=== PATIENT | male | born 1995 | race Caucasian/White ===

== ENCOUNTER 2023-03-24 17:48 | Emergency (ER) | payer OTHER, SELFPAY ==
--- NOTE | ~2023-03-24 | XR_ITS ---
EXAMINATION: XR shoulder LT min 2V DATE: 03/24/2023 18:11 INDICATION: Left shoulder pain. Fall. TECHNIQUE: 4 views of left shoulder were obtained. COMPARISON: None. FINDINGS: Bone alignment is normal. No fracture. Joint spaces are normal. IMPRESSION: 1. Normal left shoulder. Reviewed, dictated and finalized at location E. POINTER IMPRESSION: 1. Normal left shoulder.
--- NOTE | ~2023-03-24 | XR_ITS ---
EXAMINATION: [id number] DATE: 03/24/2023 19:09 INDICATION: Left neck and shoulder pain. Fall on ice. TECHNIQUE: 3 views of cervical spine were obtained. COMPARISON: None. FINDINGS: There is 5 degrees levocurvature of cervicothoracic spine. Vertebral body heights and inter vertebral disc heights are normal. The facet joints are unremarkable. No central canal stenosis or pr evertebral soft tissue swelling. IMPRESSION: 1. No fracture. Reviewed, dictated and finalized at location E. RIAL CREW SUPERVISOR IMPRESSION: 1. No fracture.
[2023-03-24 17:50] VITALS: BP 136/109; PULSE 93; RESP 16; TEMP 36.4; O2SAT 99
--- NOTE | 2023-03-24 18:02 | ED.FALL ---
HPI - Fall General Chief Complaint: Fall <Don Senior APRN - Last Filed: 03/25/23 07:55> Stated Complaint: fall, left shoulder injury <Don Senior APRN - Last Filed: 03/25/23 07:55> Time Seen by Provider: 03/24/23 18:02 <Don Senior APRN - Last Filed: 03/25/23 07:55> 1802: Cristiano is a 27-year-old male patient presenting to ER today for left shoulder pain/injury after falling on the ice this morning. He denies hitting his head or any loss of consciousness. He denies any neck pain. <Don Senior APRN - Last Filed: 03/25/23 07:55> Source: patient <Don Senior APRN - Last Filed: 03/25/23 07:55> Mode of arrival: ambulatory <Don Senior APRN - Last Filed: 03/25/23 07:55> Limitations: no limitations <Don Senior APRN - Last Filed: 03/25/23 07:55> History of Present Illness HPI Narrative: No numbness/tingling. No other areas of pain. Took Tylenol prior to arrival. <Ana Rosa Mattson PA-C - Last Filed: 03/24/23 19:51> Related Data Allergies/Adverse Reactions: Allergies Allergy/AdvReac Type Severity Reaction Status Date / Time No Known Allergies Allergy Unverified 07/16/12 20:05 <Don Senior APRN - Last Filed: 03/25/23 07:55> Review of Systems Review of Systems: Pertinent positives per HPI. Patient denies any fever, chills, rash, headache, visual changes, dizziness, cough, runny nose, sore throat, shortness of breath, chest pain, palpitations, nausea, vomiting, diarrhea, constipation, abdominal pain, or any urinary issues. <BUDDY Savage Last Filed: 03/25/23 07:55> All systems reviewed & are unremarkable except as noted in HPI and below <Ana Rosa Mattson PA-C - Last Filed: 03/24/23 19:51> PMFSH Comments At the time of my signature, I reviewed and agree with the nursing past medical, surgical, social, and family history. There is no relevant family history pertinent to the patient complaint. <Don Senior APRN - Last Filed: 03/25/23 07:55> Exam Narrative: General: Well-developed, well nourished, in no apparent distress Head: Normocephalic, atraumatic. Cardio: Regular rate and rhythm, s1 and s2 normal, no murmur appreciated. Resp: Clear to auscultation bilaterally, no rhonchi, rales, wheezing or rubs. Musculoskeletal: No deformity, non-tender to palpation, grossly normal range of motion, muscle strength strong and equal, peripheral pulse strong, no edema, no cyanosis, normal gait and station <Don Senior APRN - Last Filed: 03/25/23 07:55> General: Well-developed, well nourished, in no apparent distress Head: Normocephalic, atraumatic. Cardio: Regular rate and rhythm, s1 and s2 normal, no murmur appreciated. Resp: Clear to auscultation bilaterally, no rhonchi, rales, wheezing or rubs. NECK: Mild TTP along L paraspinal musculature extending into L trapezius region. No thoracic or lumbar spinal tenderness. Musculoskeletal: LUE: TTP diffusely throughout L shoulder joint, worst anteriorly and superiorly. Limited flexion and abduction ROM of L shoulder due to pain. Muscle strength strong and equal, equal editorial cartoonist strength bilaterally. Peripheral pulse strong, no edema, no cyanosis, normal gait and station <Ana Rosa Mattson PA-C - Last Filed: 03/24/23 19:51> Course Course Emergency Course: Portions of this record may have been created with voice recognition software. <Don Senior APRN - Last Filed: 03/25/23 07:55> Vital Signs Vital signs: Vital Signs Temperature 36.4 C 03/24/23 17:50 Pulse Rate 93 03/24/23 17:50 Respiratory Rate 16 03/24/23 17:50 Blood Pressure 136/109 H 03/24/23 17:50 Pulse Oximetry 99 03/24/23 17:50 Oxygen Delivery Room Air 03/24/23 17:50 Temperature 36.4 C 03/24/23 17:50 Pulse Rate 93 03/24/23 17:50 Respiratory Rate 16 03/24/23 17:50 Blood Pressure 136/109 H 03/24/23 17
--- NOTE | 2023-03-24 18:10 | PC.NURSE ---
Pt unable to perform left posterior reach, edema to left shoulder joint. Denies numbness/tingling to left arm. Radial pulse palp, capillary refill brisk.
[2023-03-24] MEDS: KETOROLAC (*BKC) 60 MG/2 ML VIAL IM (19:16)
== END 2023-03-24 19:52 | disposition home or self-care (01) ==
PROVIDERS: Emergency Provider Physician Assistant
DX: S46.912A Strain of unspecified muscle, fascia and tendon at shoulder and upper arm level, left arm, initial encounter (principal); W00.0XXA Fall on same level due to ice and snow, initial encounter
CPT/HCPCS: 72040; 73030; 96372; 99284; A4565; J1885